=== PATIENT | female | born 1950 | race Caucasian/White ===

== ENCOUNTER 2022-11-24 06:45 | Day surgery (SDC) | payer MEDICARE ==
[2022-11-22 11:44] LABS: BASOPHILS # (AUTO) 0.1 X10'3 (0-0.2); BASOPHILS % (AUTO) 0.6 % (0-1); EOSINOPHILS # (AUTO) 0.2 X10'3 (0-0.9); EOSINOPHILS % (AUTO) 2.2 % (0-6); LYMPHOCYTES # (AUTO) 2.4 X10'3 (1.1-4.8); MEAN CORPUSCULAR HEMOGLOBIN 32.1 PG (27.0-31.0); MEAN CORPUSCULAR HGB CONC 34.1 g/dL (33.0-36.5); MEAN CORPUSCULAR VOLUME 94.2 FL (78-98); MEAN PLATELET VOLUME 6.9 FL (7.4-10.4); MONOCYTES # (AUTO) 0.7 X10'3 (0-0.9); MONOCYTES % (AUTO) 8.6 % (2-12); NEUTROPHILS # (AUTO) 4.5 X10'3 (1.8-7.7); NEUTROPHILS % (AUTO) 57.6 % (42-75); PRE OP HEMATOCRIT 31.8 % (35.0-45.0); PRE OP PLATELET COUNT 376 X10'3 (140-440); RED BLOOD COUNT 3.37 X10'6 (4.20-5.60); RED CELL DISTRIBUTION WIDTH 14.4 % (11.5-14.5)
[2022-11-22 11:49] LABS: PRE OP HEMOGLOBIN 10.8 g/dL (12.0-16.0)
[2022-11-22 11:51] LABS: CLARITY,URINE SLIGHTLY CLOUDY (Clear); COLOR,URINE YELLOW (Yellow); GLUCOSE, URINE NEGATIVE (Neg); KETONES,URINE NEGATIVE (Neg); LEUKOCYTE ESTERASE ,URINE SMALL (Neg); NITRITES, URINE NEGATIVE (Neg); OCCULT BLOOD,URINE NEGATIVE (Neg); PROTEIN,URINE NEGATIVE (Neg); UROBILINOGEN,URINE 0.2 E.U/dL (0.2-1.0)
[2022-11-22 11:58] LABS: ALBUMIN 3.8 G/DL (3.4-5.0); ALBUMIN/GLOBULIN RATIO 1.2 (1.1-1.5); ALKALINE PHOSPHATASE 74 IU/L (46-116); BLOOD UREA NITROGEN 18 MG/DL (7-18); BUN/CREATININE RATIO 17.1 (6.6-38.0); CHLORIDE 105 MMOL/L (99-107); CREATININE 1.05 MG/DL (0.40-0.90); PRE OP ALT 28 U/L (30-65); PRE OP ANION GAP 8 (8-16); PRE OP AST 19 U/L (10-37); PRE OP BILIRUB, TOTAL 0.3 MG/DL (0.0-1.0); PRE OP GLUCOSE 91 MG/DL (70-104); PRE OP SODIUM 140 MMOL/L (135-145); TOTAL CARBON DIOXIDE 26.6 MMOL/L (24-32); TOTAL PROTEIN 6.9 G/DL (6.4-8.2); eGFR 52 ML/MIN
[2022-11-22 11:59] LABS: UA COLLECTION TYPE CLN CATCH MIDSTREAM
[2022-11-22 12:00] LABS: HYALINE CASTS 0-3 /LPF (NEGATIVE); SQUAMOUS EPITHELIAL CELL,UR MODERATE /LPF (FEW)
[2022-11-22 12:01] LABS: BACTERIA,URINE FEW /HPF (Neg); WBC CLUMPS,URINE MANY /HPF (NEGATIVE)
[2022-11-22 12:02] LABS: RBC,URINE 0-2 /HPF (0-2)
[2022-11-22 12:06] LABS: PRE OP POTASSIUM 3.1 MMOL/L (3.4-5.1)
[~2022-11-24] VITALS: Ht 165.1 cm; Wt 71.6 kg
[2022-11-24] VITALS (8 sets, daily range): BP systolic 118–145; BP diastolic 44–71
[~2022-11-24 06:45] MED LIST: BUPR200T27 PO; FLUO40CA PO; HYDR-3972 PO; LEVO88TA7 PO; MORP-92 PO; OLME40TA18 PO; OMEPRAZOLE PO; ceFAZolin inj. 2,000 MG in dextrose 5%-water 100 ML IV ONE; famotidine 20mg tablet PO ONE; ringers solution, lacted 1,000 ML IV SCH
[2022-11-24 08:21] LABS: ISTAT HGB 11.9 g/dl (12.0-16.0); ISTAT IONIZED CALCIUM 1.26 mmol/L (1.03-1.32); ISTAT K 4.1 mmol/L (3.5-5.1)
[2022-11-24] MEDS ORDERED: cloNIDine hcl/PF 100mcg/ml inj ONE (08:43)
[2022-11-24] MEDS ORDERED: sevoflurane 250ml liquid IH ONE (09:31)
[2022-11-24] MEDS ORDERED: fentaNYL/PF 50MCG/1 ML 2ML syringe ONE (09:42)
[2022-11-24] MEDS ORDERED: midazolam 1 mg/ML 2ml injection ONE (09:43)
[2022-11-24] MEDS ORDERED: ondansetron/PF 4mg/2ml inj IV PRN (10:05)
[2022-11-24] MEDS ORDERED: HYDROmorphone/PF 0.2 MG/ML SYRINGE IV PRN ×2 (10:05)
[2022-11-24] MEDS ORDERED: meperidine/PF 25mg/ml syringe IV PRN (10:05)
[2022-11-24] MEDS ORDERED: ringers solution, lacted 1,000 ML IV SCH (10:05)
[2022-11-24] MEDS ORDERED: morphine 4 MG/ML inj SYRINge IV PRN (10:05)
[2022-11-24] MEDS ORDERED: morphine 2 MG/ML inj. syringe IV PRN (10:05)
[2022-11-24] MEDS ORDERED: proCHLORperazine 10 MG/2 ml inj IV PRN (10:05)
[2022-11-24] MEDS ORDERED: acetaminophen 1,000mg/100ml IV 100 ML IV PRN (10:05)
[2022-11-24] MEDS ORDERED: labetalol 20mg/4ml (5mg/ml) syringe IV PRN (10:05)
[2022-11-24] MEDS ORDERED: ketorolac tromethamine 15mg/ml inj. IV ONE (10:05)
[2022-11-24] MEDS ORDERED: hydrALAZINE 20mg/ml inj. IV PRN (10:05)
[2022-11-24] MEDS ORDERED: ondansetron/PF 4mg/2ml inj ONE (10:09)
[2022-11-24] MEDS ORDERED: LIDOcaine 2% (20mg/ml) 5ml vial ONE (10:09)
[2022-11-24] MEDS ORDERED: propofol inj 20 ML IV ONE (10:09)
[2022-11-24] MEDS ORDERED: dexamethasone sod phosphate 4mg/ml inj. ONE (10:09)
[2022-11-24] MEDS ORDERED: 0.9 % SODIUM CHLORIDE 10 ML VIAL ONE ×2 (10:09)
[2022-11-24] MEDS ORDERED: bacitracin 15gm ointment TP ONE (11:26)
--- NOTE | 2022-11-24 11:55 | NUR ---
Received from OR via BED, accompanied by Anesthesiologist and report given by Anesthesiologist. PATIENT WAKING UP, NO S/S OF PAIN, V/S WNL, SCD ON, 20G TO LUE, LEFT FOOT SPLINT BOOT W/OTLU WRAP DRESSING W/ 4X4 UNDER THIS CDI
--- NOTE | 2022-11-24 12:45 | NUR ---
PATIENT A&OX4, DENIES PAIN, V/S WNL, SCD OFF, 20G TO [place] D/C, LEFT FOOT SPLINT BOOT W/TOLU WRAP DRESSING W/ 4X4 UNDER THIS CDI. I HAVE REVIEWED D/C INSTRUCTIONS WITH PATIENT and they have verbalized understanding patient d/c home with all belongings and family gave transport home.
== END 2022-11-24 12:45 | disposition home or self-care (01) ==
LOC: PAS 06:45
PROVIDERS: ATTEND Podiatrist Foot & Ankle Surgery
DX: M20.12 Hallux valgus (acquired), left foot (principal); M21.612 Bunion of left foot; I10 Essential (primary) hypertension; M18.11 Unilateral primary osteoarthritis of first carpometacarpal joint, right hand; E03.9 Hypothyroidism, unspecified; M19.042 Primary osteoarthritis, left hand; G89.18 Other acute postprocedural pain; F32.A Depression, unspecified; K21.9 Gastro-esophageal reflux disease without esophagitis; G43.909 Migraine, unspecified, not intractable, without status migrainosus; G89.29 Other chronic pain; Z90.710 Acquired absence of both cervix and uterus; Z98.890 Other specified postprocedural states; Z87.891 Personal history of nicotine dependence; Z72.89 Other problems related to lifestyle; Z79.899 Other long term (current) drug therapy
CPT/HCPCS: 20900; 28297; 36415; 64445; 64447; 73620; 76000; 80047; 80053; 81001; 82948; 85025; 87088; A6223; C1713; C1776; J0690; J0735; J1100; J2250; J2405; J2704; J3010; J3490; J7030; J7060; J7120; Z7506; Z7508; Z7512; A4618; A6253; A6449; A7000; C1769